=== PATIENT | male | born 1940 | race Hispanic/Latino ===

== ENCOUNTER 2016-10-23 06:25 | Day surgery (SDC) | payer MEDICARE ==
[2016-10-23] MEDS ORDERED: ECOTRIN PO ONE (06:54)
[2016-10-23] MEDS ORDERED: NACL 0.9% 500 ML 500 ML IV SCH (07:00)
[2016-10-23] MEDS ORDERED: HEPARIN/NS 5000 UNIT/500ML(CATH LAB) 1,000 ML IR ONE (08:03)
[2016-10-23] MEDS ORDERED: XYLOCAINE 2% INFILTRATI ONE (08:03)
[2016-10-23] MEDS ORDERED: VERSED ONE (08:18)
[2016-10-23] MEDS: SUBLIMAZE ONE ×2 (08:28→08:37)
[2016-10-23] MEDS: APRESOLINE ONE ×2 (08:44→08:51)
--- NOTE | 2016-10-23 09:33 | Short Stay Summary ---
Short Stay Documentation Date of service: 10/23/16 - History H&P: obtained from office - Allergies and Medications Current Medications: Allergies Penicillins Adverse Reaction (Verified 10/23/16 06:53) STOP HIS HEART rosuvastatin calcium [From Crestor] Adverse Reaction (Verified 10/23/16 06:53) CHEST PAIN Home Medications Medication Instructions Recorded Confirmed Last Taken Type Amlodipine Besylate [Amlodipine 10 mg PO DAILY 10/23/16 10/23/16 10/22/16 History Besylate] 10mg Aspirin EC [Aspirin Enteric Coated 81 mg PO DAILY 10/23/16 10/23/16 10/22/16 History TAB] Benazepril HCl [Benazepril HCl] 40 mg PO DAILY 10/23/16 10/23/16 10/22/16 History 40mg ISOSORBIDE MONOnitrate [Imdur ER] 60 mg PO DAILY 10/23/16 10/23/16 10/22/16 History Metoprolol Tartrate [Metoprolol 100 mg PO DAILY 10/23/16 10/23/16 10/22/16 History Tartrate] 100mg Active Medications Sodium Chloride (Nacl 0.9% 500 Ml) 500 mls @ 50 mls/hr IV DIRECT ALBAN Stop: 10/23/16 16:59 Last Admin: 10/23/16 07:41 Dose: 50 mls/hr - Brief post op/procedure progress note Date of procedure: 10/23/16 Pre-op diagnosis: angina Post-op diagnosis: same Anesthesia: local Estimated blood loss: none Pathology: none - Disposition Condition at discharge: Good Disposition: DISCHARGED TO HOME OR SELFCARE - Discharge Diagnoses (1) Angina effort Status: Acute (2) Abnormal cardiovascular stress test Status: Acute (3) CAD (coronary artery disease) of bypass graft Status: Acute Qualifiers: [place] vs. transplanted heart: [place] heart Associated angina: with stable angina Qualified Code(s): I25.708 - Atherosclerosis of coronary artery bypass graft(s), unspecified, with other forms of angina pectoris (4) Hypertension Status: Chronic Qualifiers: Hypertension type: essential hypertension Qualified Code(s): I10 - Essential (primary) hypertension (5) Hyperlipemia, mixed Status: Chronic Short Stay Discharge Plan Activity: advance as tolerated Diet: low fat, low cholesterol, low salt Wound: keep clean and dry Follow up with: DERRICK RASMUSSEN MD [Primary Care Provider] - 7 Days
--- NOTE | 2016-10-23 10:22 | Cardiac Catherization Report ---
NAME OF PROCEDURE: Left heart catheterization with bypass grafts and selective mammary injections. CLINICAL INFORMATION: This is a 76-year-old gentleman with known history of a 3-vessel bypass in 1999 and 2006 had a PCI of left main going to ramus, drug-eluting stents. The patient presents with chest pressure, anginal type symptoms, Forsyth classification 3 with abnormal cardiac PET in the inferolateral territory with moderate ischemia with normal LV function. The patient is on beta blockers and nitrates. Left heart catheterization was performed via the right femoral artery, sterile technique, local anesthesia, 5-Micronesian groin sheath inserted. FINDINGS: 1. Left system engaged with JR4 catheter, left main stent is patent, the distal left main going to ramus has about 50% stenosis of a small to medium caliber ramus that is patent. Circumflex and proximal, ostial is 100%. LAD and proximal section 100%. LV gram done in the BRANDI and GERONIMO view shows normal LV function. LVEDP of 21 mmHg, EF 55-60%. LV was 201/3 and aortic is 198/76. No significant gradient across the aortic valve. 2. RCA engaged with JR4 catheter, is a codominant system, small-caliber proximal is patent, but mid stents are 100%, see right to right collaterals. 3. SVG to diagonal is 100%, engaged with AR Mod catheter. 4. SVG to OM is patent, it is a large caliber, graft free of disease at the ostium, body, and anastomosis site, feeds into OM1 and also to the OM2. OM1 is a small-caliber vessel, the anastomosis has an 80% lesion of a small vessel and in the pilot station circumflex, there is a focal 90% lesion prior to going to OM2 and distal circ in the AV groove, extreme tortuosity noted of this through graft. 5. [place] was engaged with IM catheter, is a large caliber graft, free of disease at the ostium, body, and anastomosis, feeds into the mid LAD with good flow going to medium caliber LAD, feeds up to the proximal LAD and anterograde also into a small diagonal 1 that is patent. 5-Micronesian catheter taken over a guidewire, 5-Micronesian groin sheath was sewn in. No hematoma. No bleeding. SUMMARY: 1. Patent [place] to LAD. 2. SVG to OM and circumflex has ostial OM1 disease at the anastomosis site of a small caliber vessel and extreme tortuosity of the mid circumflex, which has a focal 90% lesion, treat medically. 3. RCA mid stent 100%, right to right collateral of a small codominant vessel. 4. Left main stent going to ramus, the ostium of the ramus has a 50% lesion going to a small to medium caliber ramus that is patent. 5. Normal LV function. 6. Continue to treat medically. Discussed this in detail with the patient and the patient's family. JOB# [id number] DEE DEE/JESSEE ELISE
[2016-10-23 13:44] VITALS: BP 149/74
== END 2016-10-23 14:15 | disposition home or self-care (01) ==
LOC: OPU 06:25
PROVIDERS: ATTEND Internal Medicine
DX: I25.119 Atherosclerotic heart disease of native coronary artery with unspecified angina pectoris (principal); I10 Essential (primary) hypertension; E78.2 Mixed hyperlipidemia
CPT/HCPCS: 93005; 93010; 93459; J0360; J1644; J2250; J3010; J7040; Q9967